=== PATIENT | male | born 1930 | race Caucasian/White ===

== ENCOUNTER → 2016-08-07 | Outpatient (CLI) | payer OTHER, BC ==
[~2016-08-07] MED LIST: ACET-1311 PO; AGG PO; AMLO-110 PO; CARB25TA12 PO; CEFD1CAP14 PO; CPR500 PO; DUTA1CAP3 PO; RASA1TAB4 PO; SERT25TA PO; SNM/25100 PO; TAMS0.4C38 PO; ZLF/50 PO; ZTA10 PO; [UNRECOGNIZED DRUG - CODE] PO
[2016-08-07 19:16] LABS: URINE APPEARANCE CLOUDY (CLEAR); URINE BILIRUBIN NEG (NEG); URINE COLOR YELLOW; URINE EPITHELIAL CELL AUTO 0-5 /lpf (0-5); URINE NITRITE NEG (NEG); URINE PH 6.5 (4.5-7.5); URINE SPECIFIC GRAVITY 1.013 (1.000-1.030); UROBILINOGEN NEG (NEG)
[2016-08-07 19:19] LABS: MANUAL MICROSCOPIC REQUIRED? NO; REVIEW REQ? NO
--- NOTE | 2016-09-06 06:03 | CODING QUERY NO DIAGNOSIS ---
TREATMENT RENDERED WITHOUT A DIAGNOSIS To promote full compliance with coding requirements relating to patient care, physician participation is requested in all cases of tax map technician uncertainty. Please assist us with providing a diagnosis/symptom for the test(s) below: A diagnosis/symptom was not documented on your Order. A valid diagnosis/symptom is required to bill all insurances. Please remember that we are unable to code a diagnosis of rule out, probable, possible, questionable, or suspected. Tests that require a diagnosis: DOS 08/07 * Urine Culture DIAGNOSIS: Provider Signature: Date: Thank you Geni Borrero Health Information Management Once completed, please kindly fax back to [phone] For questions please call [phone]
== END | disposition home or self-care (01) ==
LOC: C.LAB 15:13
PROVIDERS: ATTEND Internal Medicine Critical Care Medicine
DX: R53.83 Other fatigue (principal); Z87.440 Personal history of urinary (tract) infections

== ENCOUNTER → 2016-08-08 | Outpatient (CLI) | payer OTHER, BC ==
[2016-08-08 10:54] LABS: BLOOD UREA NITROGEN 37 mg/dl (7-18); BUN/CREATININE RATIO 23.4 (10-20); CALCIUM 9.2 mg/dl (8.5-10.1); CARBON DIOXIDE 24 mmol/L (21-32); CHLORIDE 103 mmol/L (98-107); GLUCOSE 84 mg/dl (70-99); POTASSIUM 4.4 mmol/L (3.5-5.1); SODIUM 139 mmol/L (136-145)
[2016-08-08 11:01] LABS: BASO % 0.1 %; BASO ABS # 0.06 K/uL (0-0.2); COMPLETE YES; ECHINOCYTES 1+; EOS % 0.1 %; GIANT PLATELETS 1+; HEMATOCRIT 43.4 % (42-52); IG% 1.3 %; LYMPH % 2.3 %; MEAN CELL VOLUME 97.1 fL (80-100); MEAN CORPUSCULAR HEMOGLOBIN 31.5 pg (25-34); MEAN CORPUSCULAR HGB CONC 32.5 g/dl (32-36); MEAN PLATELET VOLUME 11.1 fL (7.4-10.4); NEUT % 93.2 %; PLATELET COUNT 282 K/uL (130-400); PLT ESTIMATE NORMAL; RED BLOOD COUNT 4.47 M/uL (4.7-6.1); TOXIC GRANULATION 2+; VACUOLIZATION 1+; WHITE BLOOD COUNT 47.44 K/uL (4.8-10.8)
== END | disposition home or self-care (01) ==
LOC: C.LABVPSUA 09:29
PROVIDERS: ATTEND Internal Medicine Critical Care Medicine
DX: R50.9 Fever, unspecified (principal)

== ENCOUNTER → 2016-08-09 | Outpatient (CLI) | payer OTHER, BC ==
[2016-08-09 09:38] LABS: MEAN CELL VOLUME 96.3 fL (80-100); MEAN CORPUSCULAR HEMOGLOBIN 31.4 pg (25-34); MEAN CORPUSCULAR HGB CONC 32.6 g/dl (32-36); MEAN PLATELET VOLUME 10.9 fL (7.4-10.4); PLATELET COUNT 251 K/uL (130-400); RED BLOOD COUNT 4.05 M/uL (4.7-6.1); WHITE BLOOD COUNT 24.66 K/uL (4.8-10.8)
[2016-08-09 09:55] LABS: BLOOD UREA NITROGEN 34 mg/dl (7-18); BUN/CREATININE RATIO 25.8 (10-20); CARBON DIOXIDE 23 mmol/L (21-32); CHLORIDE 109 mmol/L (98-107); GLUCOSE 115 mg/dl (70-99); POTASSIUM 4.2 mmol/L (3.5-5.1); SODIUM 140 mmol/L (136-145)
[2016-08-09 10:13] LABS: CALCIUM 8.7 mg/dl (8.5-10.1)
[2016-08-09 10:21] LABS: BASO % 0.2 %; BASO ABS # 0.04 K/uL (0-0.2); COMPLETE YES; EOS % 0.7 %; IG% 1.4 %; LYMPH % 5.6 %; LYMPH ABS # 1.39 K/uL (1.2-3.4); MONO % 5.6 %; NEUT % 86.5 %
== END | disposition home or self-care (01) ==
LOC: C.LABVPSUA 09:11
PROVIDERS: ATTEND Internal Medicine Critical Care Medicine
DX: N39.0 Urinary tract infection, site not specified (principal)

== ENCOUNTER → 2016-08-19 | Outpatient (CLI) | payer OTHER, BC ==
[2016-08-19 11:10] LABS: URINE APPEARANCE CLEAR (CLEAR); URINE BILIRUBIN NEG (NEG); URINE COLOR YELLOW; URINE NITRITE NEG (NEG); URINE SPECIFIC GRAVITY 1.013 (1.000-1.030); UROBILINOGEN NEG (NEG)
[2016-08-19 11:16] LABS: MANUAL MICROSCOPIC REQUIRED? NO; REVIEW REQ? NO
== END | disposition home or self-care (01) ==
LOC: C.LABVPSUA 10:34
PROVIDERS: ATTEND Internal Medicine Critical Care Medicine
DX: N39.0 Urinary tract infection, site not specified (principal)

== ENCOUNTER → 2016-12-17 | Outpatient (CLI) | payer OTHER, BC ==
[2016-12-17 10:31] LABS: URINE APPEARANCE CLOUDY (CLEAR); URINE BILIRUBIN NEG (NEG); URINE COLOR YELLOW; URINE NITRITE POS (NEG); URINE SPECIFIC GRAVITY 1.016 (1.000-1.030); UROBILINOGEN NEG (NEG)
[2016-12-17 10:33] LABS: MANUAL MICROSCOPIC REQUIRED? NO; REVIEW REQ? YES
[2016-12-17 10:42] LABS: URINE EPITHELIAL CELL AUTO 0-5 /lpf (0-5)
== END ==
LOC: C.LABVPSUA 08:49
PROVIDERS: ATTEND Internal Medicine Critical Care Medicine
DX: R36.9 Urethral discharge, unspecified (principal)

== ENCOUNTER 2017-08-14 22:34 | Emergency (ER) | payer OTHER, BC ==
[~2017-08-14] VITALS: Ht 180.3 cm; Wt 94.9 kg
[~2017-08-14 22:34] MED LIST changes: -DONE5TAB26 PO; -LIDO2GEL9 TOP; -PROPDRO5 OP
[2017-08-14 22:50] VITALS: TEMP 36.7; Ht 180.3 cm; Wt 94.9 kg
--- NOTE | 2017-08-14 22:56 | EMERGENCY ROOM VISIT NOTE ---
History Report prepared by Louisa: Castro Barth Under the Supervision of: Dr. Manish Elizabeth M.D. First contact with patient: 22:40 Chief Complaint: CATHETER REPLACEMENT Stated Complaint: CATHETER PROBLEMS History of Present Illness The patient is a 87 year old white male with a past medical history of BPH who presents to the ED with a cc of constant urinary pain beginning 1400. The patient states he noticed his catheter was blocked when he started to experience pain upon urination. He reports that he also noticed that there was blood coming out of his catheter. The patient states his pain is not as severe currently as it was earlier this evening. Positive blood in catheter. Negative fevers, chills, nausea, vomiting. Source of History: patient Onset: 1400 Position: other (global) Timing: constant Modifying Factors (Worsening): urination Associated Symptoms: No fevers, No chills, No nausea, No vomiting Note: Positive: blood in catheter. Review of Systems See HPI for pertinent positives and negatives. A total of ten systems were reviewed and were otherwise negative. Past Medical & Surgical Medical Problems: (1) Benign hypertension (2) BPH (benign prostatic hyperplasia) (3) Gross hematuria (4) Hyperlipidemia (5) PERSONAL HX OF TIA,& CEREBRAL INFARCTION W/OUT RES DEFICITS (6) Pneumonia Surgical Problems: (1) S/P appendectomy (2) S/P tonsillectomy Family History Hypertension Social History Smoking Status: Never Smoker Alcohol Use: none Drug Use: cocaine Marital Status: Occupation Status: retired Current/Historical Medications Scheduled Carbidopa/Levodopa (Sinemet 25MG/100MG), 0.5 TAB PO BID AT 1100 & 2000 Dipyridamole/Aspirin (Aggrenox 25-200 mg), 1 CAP PO BID Donepezil Hydrochloride (Donepezil Hcl), 5 MG PO HS Dutasteride (Dutasteride), 0.5 MG PO HS Levodopa/Carbidopa (Sinemet 25MG/100MG), 1 TAB PO BID AT 0600 & 1500 Rasagiline Mesylate (Rasagiline Mesylate), 1 MG PO QAM Sertraline (Zoloft), 25 MG PO QAM Tamsulosin Hcl (Flomax), 0.4 MG PO QAM Scheduled PRN Acetaminophen (Tylenol), 650 MG PO Q4H PRN for Pain or Fever Lidocaine Hcl (Lidocaine Hcl Jelly), 1 APPLN TOP DIRECTED PRN for PATEL CHANGING Propylene Glycol-Glycerin (Artificial Tears), 1 DROP OP QID PRN for DRYNESS Allergies Coded Allergies: No Known Allergies (Unverified , 08/14/17) Physical Exam Vital Signs Date Time Temp Pulse Resp B/P (MAP) Pulse Ox O2 Delivery O2 Flow Rate FiO2 08/14/17 22:50 36.7 56 18 207/96 96 Room Air Physical Exam GENERAL: Awake, alert, well-appearing, NAD, wearing glasses HENT: Normocephalic, atraumatic. EYES: Normal conjunctiva. Sclera non-icteric. PERRL. No anisocoria. NECK: Supple. No nuchal rigidity. FROM. RESPIRATORY: CTAB, no rhonchi, wheezing, crackles CARDIAC: RRR, no MRG ABDOMEN: Soft, NTND, BS+ MSK: No chest wall TTP, no LE edema : Patel catheter in place. Blood in catheter tubing. NEURO: GCS 15, CN 2-12 intact, moves all 4s on command SKIN: No rash or jaundice noted. Medical Decision & Procedures ED Course 2239: The patient was evaluated in room C05. A complete history and physical exam was performed. 2356: I reevaluated the patient. Discussed results and discharge instructions: He verbalized understanding and agreement. The patient is ready for discharge. Medical Decision Nursing notes reviewed. Ancillary studies and prior records reviewed. The patient is a 87 year old white male with a past medical history of BPH who presents to the ED with a cc of constant urinary pain beginning 1400. The patient's presentation and history were concerning for []. Patient was seen and evaluated the bedside. Patient does have a history of BPH and hematuria. He was admitted last January for likely traumatic hematuria secondary to placement. Patient states he noticed that he had some mild discomfort beginning around 2 PM today. Patient is currently on Aggrenox. The patient was taken off Aggrenox last time this occurred for a brief period as the patient does have a history of stroke. On exam the patient does have some blood that seen in the urinary catheter. The patient does have mild suprapubic discomfort. The catheter was flushed and clots were removed. The patient did have drainage with immediate relief. The patient was told to hold his Aggrenox for the next 2 days. The nursing staff did call the [facility] her to inform the staff there to hold his Aggrenox for 2 days. The patient is going to go home. I believe this is reasonable and the patient is to return if he has recurrent issues with his catheter. Patient was given strict follow-up, discharge, and return precautions. All questions were answered. Patient was deemed suitable for outpatient follow-up at this time. Patient agreed with the plan of care and was safely discharged home. Medication Reconcilliation Current Medication List: was personally reviewed by me Blood Pressure Screening Patient's blood pressure: Elevated blood pressure Blood pressure disposition: Referred to PCP Impression Primary Impression: Complication of catheter Additional Impression: Gross hematuria Scribe Attestation The scribe's documentation has been prepared under my direction and personally reviewed by me in its entirety. I confirm that the note above accurately reflects all work, treatment, procedures, and medical decision making performed by me. Departure Information Dispostion Home / Self-Care Referrals [facility] (PCP) Patient Instructions ED Catheter Care Amanda, SAVANNA Hematuria, [facility] Additional Instructions Please return to the emergency department if you have worsening or recurrent symptoms not amenable to at-home treatment. Please call for a follow-up appointment with her primary care physician. Please take your medications as prescribed. If you have other concerns and/or complaints please feel free to also call your primary care physician's office or return the ED for further evaluation, management, and treatment. Please hold your Aggrenox the next 2 days. Please return if you have any worsening symptoms or issues with your catheter or have persistent hematuria/blood in the urine. You have been examined and treated today on an emergency basis only. This is not a substitute for, or an effort to provide, complete comprehensive medical care. It is impossible to recognize and treat all injuries or illnesses in a single emergency department visit. It is therefore important that you follow up closely with [facility], your PCP, and/or your specialist(s). Call as soon as possible for an appointment. Thank you for your time and consideration. I look forward to speaking with you again soon. Please don't hesitate to call us if you have any questions. Problem Qualifiers Primary Impression: Complication of catheter Encounter type: initial encounter Qualified Codes: T85.9XXA - Unspecified complication of internal prosthetic device, implant and graft, initial encounter
[2017-08-14] MEDS ORDERED: DONE5TAB26 PO (23:45)
[2017-08-14] MEDS ORDERED: LIDO2GEL9 TOP (23:45)
[2017-08-14] MEDS ORDERED: PROPDRO5 OP (23:45)
[2017-08-15 00:40] VITALS: BP 177/69; PULSE 55; O2SAT 97
== END 2017-08-15 00:44 | disposition home or self-care (01) ==
LOC: EDBD 22:34 → C.EDC 22:35
DX: T83.098A Other mechanical complication of other urinary catheter, initial encounter (principal); Y84.6 Urinary catheterization as the cause of abnormal reaction of the patient, or of later complication, without mention of misadventure at the time of the procedure; N40.0 Benign prostatic hyperplasia without lower urinary tract symptoms; E78.5 Hyperlipidemia, unspecified; Z86.73 Personal history of transient ischemic attack (TIA), and cerebral infarction without residual deficits; Z87.01 Personal history of pneumonia (recurrent); Z82.49 Family history of ischemic heart disease and other diseases of the circulatory system; Z79.899 Other long term (current) drug therapy

== ENCOUNTER → 2017-08-14 | Outpatient (CLI) | payer OTHER, BC ==
[~2017-08-14] MED LIST changes: -AMLO-110 PO; -CEFD1CAP14 PO; +DONE5TAB26 PO; +LIDO2GEL9 TOP; +PROPDRO5 OP; -ZLF/50 PO; -ZTA10 PO; -[UNRECOGNIZED DRUG - CODE] PO
== END ==
LOC: C.LABVPSUA 14:51
PROVIDERS: ATTEND Internal Medicine Critical Care Medicine
DX: N39.0 Urinary tract infection, site not specified (principal)

== ENCOUNTER → 2017-08-15 | Outpatient (CLI) | payer OTHER, BC ==
[~2017-08-15] MED LIST changes: +DONE5TAB26 PO; +LIDO2GEL9 TOP; +PROPDRO5 OP
[2017-08-15 10:37] LABS: HEMATOCRIT 40.5 % (42-52); HEMOGLOBIN 13.4 g/dL (14.0-18.0); MEAN CELL VOLUME 96.7 fL (80-100); MEAN CORPUSCULAR HGB CONC 33.1 g/dl (32-36); MEAN PLATELET VOLUME 11.8 fL (7.4-10.4); PLATELET COUNT 286 K/uL (130-400); RED CELL DISTRIBUTION WIDTH CV 13.9 % (11.5-14.5); RED CELL DISTRIBUTION WIDTH SD 49.3 fL (36.4-46.3); WHITE BLOOD COUNT 16.62 K/uL (4.8-10.8)
[2017-08-15 10:46] LABS: BLOOD UREA NITROGEN 33 mg/dl (7-18); CALCIUM 8.5 mg/dl (8.5-10.1); CARBON DIOXIDE 23 mmol/L (21-32); CREATININE 1.54 mg/dl (0.60-1.40); GLUCOSE 101 mg/dl (70-99); POTASSIUM 4.2 mmol/L (3.5-5.1); SODIUM 138 mmol/L (136-145)
== END | disposition home or self-care (01) ==
LOC: C.LABVPSUA 09:23
PROVIDERS: ATTEND Internal Medicine Critical Care Medicine
DX: R82.71 Bacteriuria (principal)

== ENCOUNTER → 2017-11-14 | Outpatient (CLI) | payer OTHER, BC ==
[~2017-11-14] MED LIST changes: -CPR500 PO; +DUTA1CAP17 PO; -DUTA1CAP3 PO
[2017-11-14 09:51] LABS: BLOOD UREA NITROGEN 24 mg/dl (7-18); CALCIUM 8.7 mg/dl (8.5-10.1); CARBON DIOXIDE 24 mmol/L (21-32); CREATININE 1.25 mg/dl (0.60-1.40); GLUCOSE 77 mg/dl (70-99); POTASSIUM 4.1 mmol/L (3.5-5.1); SODIUM 139 mmol/L (136-145)
[2017-11-14 09:53] LABS: HEMATOCRIT 43.4 % (42-52); HEMOGLOBIN 14.4 g/dL (14.0-18.0); MEAN CORPUSCULAR HEMOGLOBIN 31.5 pg (25-34); MEAN CORPUSCULAR HGB CONC 33.2 g/dl (32-36); MEAN PLATELET VOLUME 11.5 fL (7.4-10.4); PLATELET COUNT 286 K/uL (130-400); RED CELL DISTRIBUTION WIDTH CV 13.1 % (11.5-14.5); WHITE BLOOD COUNT 12.48 K/uL (4.8-10.8)
== END | disposition home or self-care (01) ==
LOC: C.LABVPSUA 08:34
PROVIDERS: ATTEND Internal Medicine Critical Care Medicine
DX: I10 Essential (primary) hypertension (principal); R42 Dizziness and giddiness

== ENCOUNTER → 2017-11-25 | Outpatient (CLI) | payer OTHER, BC | END | disposition home or self-care (01) | LOC: C.LABVPSUA 15:02 | PROVIDERS: ATTEND Internal Medicine Critical Care Medicine | DX: R31.9 Hematuria, unspecified (principal) ==